=== PATIENT | male | born 1995 | race African-American/Black ===

== ENCOUNTER 2019-04-17 10:02 | Emergency (ER) | payer MEDICAID ==
[~2019-04-17] VITALS: Ht 185.4 cm; Wt 59.0 kg
[2019-04-17] MEDS ORDERED: IBUPROFEN 600MG TABLET PO ONE (10:45)
[2019-04-17 11:55] VITALS: BP 140/81
== END 2019-04-17 12:00 | disposition home or self-care (01) ==
LOC: ER 10:02
DX: S93.491A Sprain of other ligament of right ankle, initial encounter (principal); F12.10 Cannabis abuse, uncomplicated; V00.131A Fall from skateboard, initial encounter; Y93.51 Activity, roller skating (inline) and skateboarding; Y92.89 Other specified places as the place of occurrence of the external cause
CPT/HCPCS: 73610; 99283; Z7610

== ENCOUNTER 2019-05-12 11:30 | Emergency (ER) | payer MEDICAID ==
[~2019-05-12] VITALS: Ht 185.4 cm; Wt 73.0 kg
[2019-05-12 11:44] VITALS: BP 114/66
== END 2019-05-12 13:10 | disposition left against medical advice (07) ==
LOC: ER 11:30
DX: Z48.00 Encounter for change or removal of nonsurgical wound dressing (principal)
CPT/HCPCS: 99281